=== PATIENT | male | born 1960 | race Caucasian/White ===

== ENCOUNTER 2017-08-08 17:43 | Emergency (ER) | payer OTHER ==
[2017-08-08] MEDS: IBUPROFEN 600 MG TAB PO (22:35)
== END 2017-08-08 22:36 | disposition home or self-care (01) ==
LOC: FTE 17:43
DX: M54.2 Cervicalgia (principal); R51 Headache; M79.641 Pain in right hand; M79.642 Pain in left hand
CPT/HCPCS: 70450; 72125; 73130-50; 76536; 99285-25

== ENCOUNTER 2017-11-26 03:35 | Emergency (ER) | payer OTHER ==
[2017-11-26 04:41] LABS: URINE PH (Dip) POC 5.5 (5.0-8.5)
[2017-11-26 04:41] LABS: URINE BLOOD (Dip) POC 3+ (NEGATIVE); URINE GLUCOSE (Dip) POC Negative (NEGATIVE); URINE KETONES (Dip) POC Negative (NEGATIVE); URINE LEUKOCYTE EST (Dip) POC Negative (NEGATIVE); URINE NITRITE (Dip) POC Negative (NEGATIVE); URINE TOTAL PROTEIN POC Trace (NEGATIVE)
[2017-11-26 04:44] LABS: ADD MAN DIFF? NO
[2017-11-26 04:46] LABS: WHITE BLOOD COUNT 13.6 10^3/ul (4.8-10.8)
[2017-11-26 04:46] LABS: BASOPHILS % 0.3 % (0.0-2.0); EOSINOPHILS # 0.1 10^3/ul (0.0-0.5); HEMATOCRIT 47.7 % (42.0-52.0); HEMOGLOBIN 16.5 g/dl (14.0-18.0); LYMPHOCYTES % 29.2 % (15.0-51.0); MEAN CORPUSCULAR HEMOGLOBIN 29.2 pg (29.0-33.0); MEAN CORPUSCULAR HGB CONC 34.6 g/dl (32.0-37.0); MEAN CORPUSCULAR VOLUME 84.4 fl (82.0-101.0); MONOCYTE # 0.8 10^3/ul (0.3-0.9); MONOCYTES % 6.1 % (0.0-11.0); NEUTROPHIL # 8.6 10^3/ul (1.6-7.5); NEUTROPHILS % 63.2 % (39.0-77.0); PLATELET COUNT 394 10^3/UL (140-415); RED BLOOD COUNT 5.65 10^6/ul (4.70-6.10); RED CELL DISTRIBUTION WIDTH 13.6 % (11.5-14.5)
[2017-11-26] MEDS: LOPERAMIDE 2 MG CAP PO (04:46)
[2017-11-26] MEDS: morphine 4 MG/ML VIAL IV (04:46)
[2017-11-26] MEDS: ONDANSETRON 4 MG INJ IV (04:46)
[2017-11-26 05:17] LABS: ALANINE AMINOTRANSFERASE 33 IU/L (13-69); ALBUMIN 4.1 g/dl (3.3-4.9); ALBUMIN/GLOBULIN RATIO 1.05; ALKALINE PHOSPHATASE 55 IU/L (42-121); ANION GAP 15 (8-16); ASPARTATE AMINO TRANSFERASE 27 IU/L (15-46); BILIRUBIN,INDIRECT 0.6 mg/dl (0-1.1); BILIRUBIN,TOTAL 0.6 mg/dl (0.2-1.3); BLOOD UREA NITROGEN 16 mg/dl (7-20); CALCIUM 10.2 mg/dl (8.4-10.2); CARBON DIOXIDE 25 mmol/L (21-31); CHLORIDE 105 mmol/L (97-110); CREATININE 1.25 mg/dl (0.61-1.24); GLUCOSE 105 mg/dl (70-220); LIPASE 41 U/L (23-300); POTASSIUM 4.4 mmol/L (3.5-5.1); SODIUM 141 mmol/L (135-144)
[2017-11-26 05:28] LABS: TROPONIN-I < 0.012 ng/ml (0.000-0.120)
== END 2017-11-26 06:19 | disposition home or self-care (01) ==
LOC: E/R 03:35
DX: R31.9 Hematuria, unspecified (principal); R10.9 Unspecified abdominal pain
CPT/HCPCS: 36415; 71045; 76705; 80053; 81003; 83690; 84484; 85025; 93005; 96374; 96375; 99285-25